=== PATIENT | female | born 1975 | race American Indian/Alaskan Native ===

== ENCOUNTER 2018-11-16 13:26 | Emergency (ER) | payer MEDICARE, OTHER ==
--- NOTE | 2018-11-16 13:41 | Event Note ---
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 Further treatment and workup at subsequent clinical providers discretion. Patient/guardian urged not to elope from the ED as their condition may be serious if not clinically assessed and managed. Initial orders include:
[2018-11-16] MEDS ORDERED: IBUPROFEN PO ONE (15:24)
--- NOTE | 2018-11-16 19:11 | XRay Report ---
PROCEDURE: XR SPINE LUMBOSACRAL 2-3V TECHNIQUE: AP lateral and cone-down lateral views were obtained. HISTORY: PAIN COMPARISONS: None FINDINGS: There has been prior fusion procedure at the L5-S1 level. Pedicle screws and stabilizing bars are in place. One of the pedicle screws appear to be fractured at the base of the stabilizing bars at the S1 level on the left. There is grade 1 spondylolisthesis L5 in relation to S1. There is mild anterior o steophytic spurring at the L5-S1 disc space. There is also mild anterior osteophytic spurring in the lower thoracic spine and also at T12-L1 and the L1-L2 disc space. IMPRESSION: Prior fusion procedure L5-S1 level. One of the fixation screws at S1 on the left is fractured. Stabil izing bars and pedicle screws otherwise appear intact.: Grade 1 spondylolisthesis L5-S1. Mild degenerative disc disease as described. . This document is electronically signed by Jean Marie Montalvo MD., November 16 2018 07:09:43 PM ET
[2018-11-16] MEDS ORDERED: ZOFRAN ONE (20:22)
[2018-11-16] MEDS ORDERED: ZOFRAN IM ONE (20:22)
[2018-11-16] MEDS ORDERED: MORPHINE IM ONE (20:22)
[2018-11-16] MEDS ORDERED: MORPHINE ONE (20:22)
--- NOTE | 2018-11-16 20:28 | Emergency Department Report ---
ED Back Pain/Injury HPI - General Chief Complaint: Back Pain/Injury Stated Complaint: BACK PAIN Time Seen by Provider: 11/16/18 13:38 Source: patient Limitations: No Limitations - History of Present Illness Initial Comments: 43-year-old -[place] female comes to the emergency room for exacerbation of her chronic back pain and left axillary abscess. Patient reports that she heard a pop in her back a few days ago. Patient complains of shooting pain to both legs since then. Patient does have a history of back surgery with fusion and hardware. Patient reports that she noticed she had a boil under her left axillary 3 days ago and it started to drain today. Patient reports that she went to her primary care provider and he referred patient to be seen in the emergency room for left boil axillary. Patient concentrates more of her chronic back pain. Patient reports that she has an appointment with [facility] on 12/07/2018 in an appointment work release surgeons 11/16/2018 for evaluation of her lower back and neck. Patient is aware that she has a fracture of one of her screws in her back. MD Complaint: back pain, other (left axillary boil) Similar Symptoms Previously: Yes (chronic back pain) Radiation: buttocks, left leg, right leg Severity scale (0 -10): 9 Consistency: constant Improves With: none Worsens With: supine, sitting upright, walking Context: other (back surgery) Associated Symptoms: denies: numbness, difficulty urinating, incontinence, fever/chills - Related Data Previous Rx's Medication Instructions Recorded Last Taken Type Ondansetron [Zofran Odt] 4 mg PO Q8HR PRN #14 tab.rapdis 03/23/18 Unknown Rx oxyCODONE /ACETAMINOPHEN [Percocet 1 tab PO Q6HR PRN #14 tablet 03/23/18 Unknown Rx 5/325] Clindamycin [Clindamycin CAP] 300 mg PO Q8H #30 cap 11/16/18 Unknown Rx Allergies Allergy/AdvReac Type Severity Reaction Status Date / Time No Known Allergies Allergy Unverified 03/23/18 09:19 ED Review of Systems ROS: Stated complaint: BACK PAIN Other details as noted in HPI Comment: All other systems reviewed and negative Constitutional: denies: chills, fever Eyes: denies: eye pain, eye discharge, vision change ENT: denies: ear pain, throat pain Respiratory: denies: cough, shortness of breath, wheezing Cardiovascular: denies: chest pain, palpitations Endocrine: no symptoms reported Gastrointestinal: denies: abdominal pain, nausea, diarrhea Genitourinary: denies: urgency, dysuria, discharge Musculoskeletal: back pain Skin: lesions Neurological: denies: headache, weakness, paresthesias Psychiatric: denies: anxiety, depression Hematological/Lymphatic: denies: easy bleeding, easy bruising ED Past Medical Hx - Past Medical History Previous Medical History?: No - Surgical History Past Surgical History?: Yes Additional Surgical History: fusion to back 2016 - Social History Smoking Status: Never Smoker - Medications Home Medications: Home Medications Medication Instructions Recorded Confirmed Last Taken Type Ondansetron [Zofran Odt] 4 mg PO Q8HR PRN #14 tab.rapdis 03/23/18 Unknown Rx oxyCODONE /ACETAMINOPHEN [Percocet 1 tab PO Q6HR PRN #14 tablet 03/23/18 Unknown Rx 5/325] Clindamycin [Clindamycin CAP] 300 mg PO Q8H #30 cap 11/16/18 Unknown Rx ED Physical Exam - General Limitations: No Limitations General appearance: alert, in no apparent distress - Head Head exam: Present: atraumatic, normocephalic - Eye Eye exam: Present: normal appearance - ENT ENT exam: Present: mucous membranes moist - Neck Neck exam: Present: normal inspection - Respiratory Respiratory exam: Present: normal lung sounds bilaterally. Absent: respiratory distress - Cardiovascular Cardiovascular Exam: Present: regular rate, normal rhythm. Absent: systolic murmur, diastolic murmur, rubs, gallop - Neurological Exam Neurological exam: Present: alert, oriented X3 - Psychiatric Psychiatric exam: Present: normal affect, normal mood - Expanded Skin Exam Expanded Type of lesion: Present: abscess Distribution of rash: RUE (axillary) Description of rash: Present: tenderness, erythematous, indurated. Absent: fluctuant ED Course Vital Signs 11/16/18 11/16/18 17:04 20:43 Temperature 103.0 F H 98.5 F Pulse Rate 88 Respiratory 22 Rate Blood Pressure 175/102 [Right] O2 Sat by Pulse 98 Oximetry ED Medical Decision Making - Radiology Data Radiology results: report reviewed Patient: ELIZABETH LARIOS MR#: [id number] : 1975 Acct:[id number] Age/Sex: 43 / F ADM Date: 11/16/18 Loc: ED Attending Dr: Ordering Physician: BRETT KHAN Date of Service: 11/16/18 Procedure(s): XR spine lumbosacral 2-3V Accession Number(s): [id number] cc: BRETT KHAN Fluoro Time In Minutes: PROCEDURE: XR SPINE LUMBOSACRAL 2-3V TECHNIQUE: AP lateral and cone-down lateral views were obtained. HISTORY: PAIN COMPARISONS: None FINDINGS: There has been prior fusion procedure at the L5-S1 level. Pedicle screws and stabilizing bars are in place. One of the pedicle screws appear to be fractured at the base of the stabilizing bars at the S1 level on the left. There is grade 1 spondylolisthesis L5 in relation to S1. There is mild anterior osteophytic spurring at the L5-S1 disc space. There is also mild anterior osteophytic spurring in the lower thoracic spine and also at T12-L1 and the L1-L2 disc space. IMPRESSION: Prior fusion procedure L5-S1 level. One of the fixation screws at S1 on the left is fractured. Stabilizing bars and pedicle screws otherwise appear intact.: Grade 1 spondylolisthesis L5-S1. Mild degenerative disc disease as described. . This document is electronically signed by Jean Marie Gonzalez MD., November 16 2018 07:09:43 PM ET Transcribed By: DFN Dictated By: JEAN MARIE GONZALEZ MD Electronically Authenticated By: JEAN MARIE GONZALEZ MD Signed Date/Time: 11/16/181910 DD/ 41 TD/TT: 11/16/181641 - Medical Decision Making 43-year-old -[place] female comes in complaining of chronic back pain and left axillary abscess. X-ray of back shows a patient has a fractured screw in her hardware. On the left arm is indurated tender swollen and erythematous but not fluctuant. Patient be placed on IV ceftriaxone with Dilaudid 1 g and Zofran 4 mg IV. Patient is in excruciating pain of 10 out of 10. Provider evaluating the patient and her Leyda awareness she has not had any prescriptions. Critical care attestation.: If time is entered above; I have spent that time in minutes in the direct care of this critically ill patient, excluding procedure time. ED Disposition Clinical Impression: Chronic back pain greater than 3 months duration, Abscess of left axilla, Lissette lulitis of axilla, left Disposition: DC- TO HOME OR SELFCARE Is pt being admited?: No Does the pt Need Aspirin: No Condition: Stable Instructions: Cellulitis (ED) Additional Instructions: Complete antibiotics as prescribed. Continue with her chronic pain medications as prescribed by your primary care provider. Follow-up with her primary care provider in next 2-3 days if his symptoms persist or gets worse. Please keep all appointments to [facility]. Prescriptions: Clindamycin [Clindamycin CAP] 300 mg PO Q8H #30 cap Referrals: PHAN PELAYO MD [Primary Care Provider] - 3-5 Days
[2018-11-16] MEDS ORDERED: ROCEPHIN 500 MG in NACL 0.9% 50 ML IV ONE (21:04)
[2018-11-16] MEDS ORDERED: ZOFRAN IV ONE (21:04)
[2018-11-16] MEDS ORDERED: DILAUDID IV ONE (21:04)
[2018-11-16 23:11] VITALS: BP 156/79
== END 2018-11-16 23:19 | disposition home or self-care (01) ==
LOC: ED 13:26
DX: G89.29 Other chronic pain (principal); M54.9 Dorsalgia, unspecified; L02.412 Cutaneous abscess of left axilla; L03.112 Cellulitis of left axilla; Z79.899 Other long term (current) drug therapy
CPT/HCPCS: 72100; 96365; 96372; 96375; 99283; J0696; J1170; J2270; J2405

== ENCOUNTER → 2018-12-14 | Outpatient (CLI) | payer SELFPAY | END | disposition home or self-care (01) | LOC: SLR 11:00 | PROVIDERS: ATTEND Specialist | DX: G47.33 Obstructive sleep apnea (adult) (pediatric) (principal) | CPT/HCPCS: G0399 ==

== ENCOUNTER 2019-06-29 05:12 | Emergency (ER) | payer MEDICARE, OTHER ==
[2019-06-29] MEDS ORDERED: KETOROLAC 60 MG/2 ML INJ IM ONE (09:38)
[2019-06-29] MEDS ORDERED: predniSONE 20 MG TAB PO ONE (09:38)
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
[2019-06-29 11:29] VITALS: BP 149/78
== END 2019-06-29 11:28 | disposition home or self-care (01) ==
LOC: ED 05:12
DX: S16.1XXA Strain of muscle, fascia and tendon at neck level, initial encounter (principal); S29.012A Strain of muscle and tendon of back wall of thorax, initial encounter; Z79.899 Other long term (current) drug therapy; X50.0XXA Overexertion from strenuous movement or load, initial encounter; Y93.89 Activity, other specified; Y92.89 Other specified places as the place of occurrence of the external cause; Y99.8 Other external cause status
CPT/HCPCS: 96372; 99282; J1885; J7512